=== PATIENT | male | born 1965 | race Caucasian/White ===

== ENCOUNTER 2017-08-07 19:11 | Inpatient (IN) ==
[2017-08-07] MEDS ORDERED: *HR* Morphine 2 MG/ML SYRINGE IVP PRN (21:46)
[2017-08-07] MEDS ORDERED: *HR* OxyCODONE Immed Rel 5 MG TABLET PO PRN (21:46)
[2017-08-07] MEDS ORDERED: Acetaminophen 325 MG TABLET PO PRN (21:46)
[2017-08-07] MEDS ORDERED: Ondansetron 4 MG/2 ML VIAL IVP PRN (21:46)
[2017-08-07] MEDS ORDERED: Naloxone 0.4 MG/ML INJ IVP PRN (21:46)
[2017-08-07] MEDS ORDERED: *HR* Heparin 5,000 UNIT/ML VIAL IVP PRN ×2 (21:48)
[2017-08-07] MEDS ORDERED: Nitroglycerin 0.4 MG TAB.SUBL SL PRN (21:50)
[2017-08-07] MEDS ORDERED: Heparin 25,000 UNIT/500 ML D5W 25,000 UNIT/500 ML MLS IVC SCH (22:00)
[2017-08-07 22:15] LABS: Basophils % 0.4 %; Eosinophils # 0.4 K/mcL (0.0-0.6); Eosinophils % 3.5 %; Hematocrit 40.2 % (37.5-50.1); Hemoglobin 13.5 g/dL (12.9-16.9); Immature Granulocytes % 0.4 % (0-4); Lymphocytes # 2.7 K/mcL (0.6-4.6); Mean Corpuscular HGB Conc 33.6 g/dL (31.6-35.5); Mean Corpuscular Hemoglobin 32.4 pg (28.0-33.3); Mean Corpuscular Volume 96.4 fL (83.0-100.0); Monocytes # 0.8 K/mcL (0.0-1.3); Monocytes % 7.3 %; Neutrophils # 7.3 K/mcL (1.6-8.9); Platelet Count 233 K/mcL (140-400); Red Blood Count 4.17 M/mcL (4.19-5.50); Red Cell Distribution Width 12.7 % (11.5-14.5); Segmented Neutrophils % 64.4 %
[2017-08-07 22:23] LABS: Hemoglobin A1C 5.3 %
[2017-08-07 22:25] LABS: INR 1.2
[2017-08-07 22:28] LABS: Activated Partial Thrombo Time 30.9 Seconds (26.0-36.0); BUN/Creatinine Ratio 12 (6-26); Blood Urea Nitrogen 11 mg/dL (8-26); Calcium 9.2 mg/dL (8.6-10.8); Carbon Dioxide 22 mEq/L (19-29); Chloride 107 mEq/L (98-109); Glucose 95 mg/dL (70-99); Osmolality,Calculated 291 (280-300); Potassium 3.8 mEq/L (3.5-4.5); Sodium 141 mEq/L (136-145); eGFR For African Americans > 60 (> 60); eGFR For Non-African Americans > 60 (> 60)
[2017-08-07 22:30] LABS: Chol/HDL Ratio 3.1 (0-4.9)
--- NOTE | 2017-08-07 23:12 | Internal Med History&Physical ---
Date of Encounter: 08/08/17 Time of Encounter: 23:11 Assessment and Plan (1) NSTEMI (non-ST elevated myocardial infarction) Current visit: Yes Status: Acute EKG shows no ST segment or T-wave changes. Troponin 0.012, 1.51, and greater than 5. Continue to trend troponin Continue heparin drip Continue aspirin, and high intensity statins 80 mg Lipitor at bedtime. Continue home dose of lisinopril and metoprolol. Patient is chest pain-free at the moment, nitroglycerin sublingual when necessary. Obtain echocardiogram Consult cardiology-Dr. Lucio was informed that he transferring physician per chart. (2) CAD (coronary artery disease) Current visit: Yes Status: Chronic As in an NSTEMI. Qualifiers: Coronary Disease-Associated Artery/Lesion type: [place] artery [place] vs. transplanted heart: [place] heart Associated angina: with unstable angina Qualified Code(s): I25.110 - Atherosclerotic heart disease of [place] coronary artery with unstable angina pectoris (3) Tobacco abuse Current visit: Yes Status: Chronic Cessation encouraged. Internal Medicine - H&P: HPI Chief complaint: Chest pain Admitted From: Home Plans for Post Hospital Care: Home History of present illness: Mr. Nails is a 51 year old male with past medical history of hypertension, hyperlipidemia, coronary artery disease with placement of 3 stents in 2015, tobacco abuse smokes one pack of cigarettes daily. Patient presented to outside facility with chest pain and pressure around 6 AM in the morning CPAP on the left side pressure-like with associated diaphoresis and shortness of breath, no nausea or vomiting. Relieved by nitroglycerin at home. At time of review she describes his chest pain-free but continues to have 1/10 chest pressure. His vital signs was normal in the ER at the referral center and his first cardiac enzyme was 0.012. However, his repeat troponin was 1.51 around 3 PM. Hence was transferred to a [facility] for cardiology intervention. Patient is calm and asymptomatic at time of review. 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 He continues to be on heparin drip and reports compliance with his home medications. Apart from cardiac, review of systems is unremarkable. Past Med Surg Social Fam HX - Past Medical History Medical history: COPD, coronary artery disease, hyperlipidemia, hypertension, myocardial infarction Psychiatric history: no psych history - Social History Smoking Status: Current every day smoker Packs per day: 1 Smokeless Tobacco Status: No Alcohol use: recent Drug use: marijuana - Family History Father History Unknown: Yes Internal Medicine - H&P: Meds Aspirin Enteric Coated [Aspirin EC] 81 mg PO DAILY 07/19/15 [History] Atorvastatin [Lipitor] 40 mg PO HS 07/19/15 [History] Lisinopril [Zestril] 10 mg PO DAILY 08/07/17 [History] Metoprolol XL (24 HR) Succ [Toprol Xl] 50 mg PO DAILY 08/07/17 [History] Nitroglycerin [Nitrostat] 0.4 mg SL Q5M PRN 08/07/17 [History] 3 Allergy/AdvReac Type Severity Reaction Status Date / Time No Known Allergies Allergy Verified 07/19/15 10:17 All Systems PM: A 10-system review of systems was performed and is negative for pertinent findings except as documented above in the HPI. - Constitutional Constitutional: no chills, no fever(s), no night sweats - EENT Eyes: no change in vision, no discharge, no pain, no photophobia Ears: no ear discharge, no ear pain, no tinnitus Nose, mouth and throat: no dysphagia, no nasal discharge, no neck pain, no sore throat - Cardiovascular Cardiovascular ROS IM: as per HPI - Respiratory Respiratory: no cough, no dyspnea, no wheezing, no excessive phlegm production - Gastrointestinal Gastrointestinal: no abdominal pain, no diarrhea, no hematemesis, no hematochezia, no melena, no nausea, no vomiting - Musculoskeletal Musculoskeletal ROS IM: no numbness, no tingling - Integumentary Integumentary IM: no rash, no unusual bruising - Neurological Neurological ROS: no confusion, no convulsions, no focal weakness, no numbness, no tingling, no tremor(s) - Endocrine Endocrine IM: no cold intolerance - Hematologic/Lymphatic Hematologic/Lymphatic: no easy bruising - Constitutional Vitals: Temp Pulse Resp BP Pulse Ox 98.4 F 58 18 125/89 95 08/07/17 21:00 08/07/17 23:00 08/07/17 23:00 08/07/17 23:00 08/07/17 23:00 General appearance: Present: A&O X 3, pleasant, no acute distress, answers questions appropriately - Head Head exam: Present: atraumatic, normocephalic - Eye Eye exam: Present: PERRL, conjuntiva pink, sclera anicteric Pupils: Present: PERRL - Neck Neck exam general surgery: Present: supple, trachea midline. Absent: lymphadenopathy - Respiratory Respiratory exam: Present: CTAB. Absent: accessory muscle use, rales, rhonchi, wheezes - Cardiovascular Cardiovascular exam: Present: RRR, +S1, +S2. Absent: diastolic murmur, gallop, rubs, systolic murmur - GI/Abdominal GI/Abdominal exam: Present: normal bowel sounds, soft, no peritoneal signs. Absent: distended, tenderness - Extremities Exam Extremities exam: Present: warm, radial pulses palpable and symmetrical. Absent : calf tenderness, cyanotic, pedal edema - Neurological Exam Neurological exam: Present: alert, CN II-XII intact, oriented X3, no focal deficits. Absent: pronater drift, facial droop, speech deficit - Skin Skin exam: Present: dry, intact Internal Med - H&P Results - Labs CBC & Chem 7: 08/07/17 22:03 08/07/17 22:03 Labs: Short CBC 08/07/17 Range/Units 22:03 WBC 11.3 H (4.3-11.1) K/mcL Hgb 13.5 (12.9-16.9) g/dL Hct 40.2 (37.5-50.1) % Plt Count 233 (140-400) K/mcL Neutrophils # 7.3 (1.6-8.9) K/mcL BMP 08/07/17 22:03 Sodium 141 Potassium 3.8 Chloride 107 Carbon Dioxide 22 BUN 11 Creatinine 0.90 Glucose 95 Calcium 9.2 Cardiac Enzymes 08/07/17 Range/Units 22:03 Troponin I 5.14 H* (0-0.03) ng/mL
[2017-08-08 05:02] LABS: Carbon Dioxide 23 mEq/L (19-29); Potassium 3.9 mEq/L (3.5-4.5); eGFR For African Americans > 60 (> 60); eGFR For Non-African Americans > 60 (> 60)
[2017-08-08 05:24] LABS: BUN/Creatinine Ratio 12 (6-26); Blood Urea Nitrogen 10 mg/dL (8-26); Calcium 8.9 mg/dL (8.6-10.8); Chloride 106 mEq/L (98-109); Glucose 100 mg/dL (70-99); Osmolality,Calculated 287 (280-300); Sodium 139 mEq/L (136-145)
[2017-08-08] MEDS: Aspirin Enteric Coated 81 MG Tablet PO SCH (08:32)
--- NOTE | 2017-08-08 08:37 | Cardiology Consult Note ---
<Jennifer Gustafson Bhavna - Last Filed: 08/08/17 09:08> Date of Encounter: 08/08/17 Time of Encounter: 08:10 Assessment and Plan (1) NSTEMI (non-ST elevated myocardial infarction) Current Visit: Yes Status: Acute Typical chest pain symptoms, peak troponin 5.14. No acute ischemic ECG changes. Pain free upon exam. Plavix load (600 mg) at [facility], on heparin gtt, asa, statin, and betablocker. Recommend [facility] with possible PCI; alternatives, risks, and benefits discussed; he is agreeable to proceed. Echocardiogram pending. Cardiac rehab consulted. Further recommendations to follow. (2) CAD (coronary artery disease) Current Visit: Yes Status: Chronic Hx of PCI to LAD and LCx (NSTEMI) in 2014. Plan as above. Qualifiers: Coronary Disease-Associated Artery/Lesion type: [place] artery [place] vs. transplanted heart: redding heart Associated angina: with unstable angina Qualified Code(s): I25.110 - Atherosclerotic heart disease of [place] coronary artery with unstable angina pectoris (3) Tobacco abuse Current Visit: Yes Status: Chronic Smoking cessation counseling provided. Discussion w patient/family: The assessment and plan as outlined above was discussed with the patient and/or family members who expressed understanding and agreement. All questions were answered. Thank you for involving us in the care of your patient. Please call with any questions. The patient will be discussed and reviewed with Dr. Khan; changes to be made accordingly. History of Present Illness Consult date: 08/08/17 Requesting physician: Kvng Garay Consult reason: NSTEMI Chief complaint: Chest pain History of present illness: Mr. Nails is a 51 year old male with PMHx significant for CAD s/p PCI ( NSTEMI 2014), HTN, HLD, and tobacco use who presented to the ED with sudden onset of left-sided chest discomfort with radiation across chest. Pain was described as heaviness and pressure associated with shortness of breath and diaphoresis. He went to [facility] ED and initial troponin was negative; repeat was 1.21. He was then given 600 mg Plavix, started on Heparin gtt and transferred to [facility]. He is pain free upon exam. No ischemic changes were noted on ECG. Of note, patient reports Plavix was stopped in September 2016 due to epistaxis. Denies abnormal bleeding or epistaxis since admission. Prior CV testing: LHC 04/15/15: severe 2v CAD, EF 65%; successful PTCA/KELLY to LAD and LCx; otherwise mild-moderate non-obstructive CAD TTE 04/16/15: LVEF 60%, no significant valvular dysfunction, normal wall motion Past Med Surg Social Fam HX - Past Medical History Attestation: Yes The following information was validated with the patient. Source: patient Medical history: COPD, coronary artery disease, hyperlipidemia, hypertension, myocardial infarction Psychiatric history: no psych history - Past Surgical History Surgical History: angioplasty/stent - Social History Smoking Status: Current every day smoker Packs per day: 1 Smokeless Tobacco Status: No Alcohol use: recent Drug use: marijuana - Family History Father History Unknown: Yes Medications and Allergies Aspirin Enteric Coated [Aspirin EC] 81 mg PO DAILY 07/19/15 [History] Atorvastatin [Lipitor] 40 mg PO HS 07/19/15 [History] Lisinopril [Zestril] 10 mg PO DAILY 08/07/17 [History] Metoprolol XL (24 HR) Succ [Toprol Xl] 50 mg PO DAILY 08/07/17 [History] Nitroglycerin [Nitrostat] 0.4 mg SL Q5M PRN 08/07/17 [History] 3 Allergy/AdvReac Type Severity Reaction Status Date / Time No Known Allergies Allergy Verified 07/19/15 10:17 All Systems Review: A 10-system review of systems was performed and is negative for pertinent findings except as documented above in the HPI. - Cardiovascular Cardiovascular: as per HPI Physical Examination Vital Signs, Last 4 Hours Temp Pulse Resp BP Pulse Ox 08/08/17 07:43 75 08/08/17 07:00 75 16 120/88 97 08/08/17 06:00 97.4 F L 58 14 126/92 96 08/08/17 05:00 76 12 132/88 94 General: Conversant, No Apparent Distress HEENT: Atraumatic, Normocephaly, Mucus Membranes Moist Neck: No JVD, Normal carotid pulses Cardiac: Reg Rate and Rhythm, Normal S1 and S2, No Murmur Lungs: Normal Breath Sounds, No Wheeze, Rales, Rhonchi Neuro: Alert and responsive, No focal deficits noted Abdomen: Soft, Non-Tender Skin: No rashes noted on visualized skin Musculoskeletal: No Chest Wall Tenderness Extremities: No Clubbing, No Cyanosis, No Edema, Normal Pulses Results 08/07/17 22:03 08/08/17 04:14 Lab Results 08/07/17 08/07/17 08/07/17 22:03 22:03 22:03 WBC 11.3 H Hgb 13.5 Hct 40.2 Plt Count 233 INR APTT Sodium 141 Potassium 3.8 Chloride 107 Carbon Dioxide 22 BUN 11 Creatinine 0.90 Glucose 95 Calcium 9.2 Troponin I B-Natriuretic Peptide 56 08/07/17 08/07/17 08/08/17 22:03 22:03 01:41 WBC Hgb Hct Plt Count INR 1.2 APTT 30.9 Sodium Potassium Chloride Carbon Dioxide BUN Creatinine Glucose Calcium Troponin I 5.14 H* 4.40 H* B-Natriuretic Peptide 08/08/17 08/08/17 04:14 04:14 WBC Hgb Hct Plt Count INR APTT 43.5 H Sodium 139 Potassium 3.9 Chloride 106 Carbon Dioxide 23 BUN 10 Creatinine 0.82 Glucose 100 H Calcium 8.9 Troponin I B-Natriuretic Peptide Active Medications Acetaminophen (Tylenol) 650 mg PO Q6HR PRN PRN Reason: Mild Pain (1-3) Stop: 02/06/18 21:47 Aspirin (Aspirin Ec) 81 mg PO DAILY NUBIA Stop: 02/07/18 09:01 Last Admin: 08/08/17 08:32 Dose: 81 mg Atorvastatin Calcium (Lipitor) 80 mg PO HS NUBIA Stop: 02/06/18 22:01 Last Admin: 08/07/17 22:10 Dose: Not Given Heparin Sodium (Porcine) (Heparin) 4,000 unit IVP Q6HR PRN PRN Reason: SEE COMMENTS Stop: 02/06/18 21:49 Heparin Sodium (Porcine) (Heparin) 2,000 unit IVP Q6H PRN PRN Reason: SEE COMMENTS Stop: 02/06/18 21:49 Last Admin: 08/08/17 05:57 Dose: 2,000 unit Heparin Sodium/Dextrose (Heparin 25,000 Unit/500 Ml D5w) 25,000 unit in 500 mls @ 20.007 mls/hr IVC .Q24H NUBIA; 11.7 UNIT/KG/HR PRN Reason: Protocol Stop: 02/06/18 22:01 Last Titration: 08/08/17 05:51 Dose: 13.7 unit/kg/hr, 23.427 mls/hr Lisinopril (Zestril) 5 mg PO DAILY NUBIA PRN Reason: Protocol Stop: 02/07/18 09:01 Last Admin: 08/08/17 08:32 Dose: 5 mg Metoprolol Tartrate (Lopressor) 12.5 mg PO BID NUBIA Stop: 02/07/18 09:01 Last Admin: 08/08/17 08:32 Dose: 12.5 mg Morphine Sulfate (Morphine Sulfate) 2 mg IVP Q4HR PRN PRN Reason: Severe Pain (7-10) Stop: 02/06/18 21:47 Naloxone HCl (Narcan) 0.4 mg IVP Q2MIN PRN PRN Reason: Opioid Reversal Stop: 02/06/18 21:47 Nitroglycerin (Nitroglycerin) 0.4 mg SL Q5MIN PRN PRN Reason: Chest Pain Stop: 02/06/18 21:51 Ondansetron HCl (Zofran) 4 mg IVP Q8HR PRN PRN Reason: Nausea And Vomiting Stop: 02/06/18 21:47 Oxycodone HCl (Roxicodone) 5 mg PO Q6HR PRN PRN Reason: Moderate Pain (4-6) Stop: 02/06/18 21:47 - Imaging and Cardiology Echo: pending, report reviewed Cardiac cath: report reviewed Other Results: 12 hour tele: avg HR=68 SR. No significant event noted. - EKG Interpretation EKG results cardiology: personally reviewed Consult Discharge Plan - Plan Referrals: Taiwo Khan DO [Primary Care Provider] - <Gypsy Khan - Last Filed: 08/08/17 11:43> Date of Encounter: 08/08/17 Assessment and Plan Discussion w patient/family: The assessment and plan as outlined above was discussed with the patient and/or family members who expressed understanding and agreement. All questions were answered. Thank you for involving us in the care of your patient. Please call with any questions. History of Present Illness History of present illness: Mr. Nails is a 51 year old male All Systems Review: A 10-system review of systems was performed and is negative for pertinent findings except as documented above in the HPI. Physical Examination Vital Signs, Last 4 Hours Temp Pulse Resp BP Pulse Ox 08/08/17 11:00 97.4 F L 61 16 116/87 97 08/08/17 07:43 75 Results 08/07/17 22:03 08/08/17 04:14 Lab Results 08/07/17 08/07/17 08/07/17 22:03 22:03 22:03 WBC 11.3 H Hgb 13.5 Hct 40.2 Plt Count 233 INR APTT Sodium 141 Potassium 3.8 Chloride 107 Carbon Dioxide 22 BUN 11 Creatinine 0.90 Glucose 95 Calcium 9.2 Troponin I B-Natriuretic Peptide 56 08/07/17 08/07/17 08/08/17 22:03 22:03 01:41 WBC Hgb Hct Plt Count INR 1.2 APTT 30.9 Sodium Potassium Chloride Carbon Dioxide BUN Creatinine Glucose Calcium Troponin I 5.14 H* 4.40 H* B-Natriuretic Peptide 08/08/17 08/08/17 04:14 04:14 WBC Hgb Hct Plt Count INR APTT 43.5 H Sodium 139 Potassium 3.9 Chloride 106 Carbon Dioxide 23 BUN 10 Creatinine 0.82 Glucose 100 H Calcium 8.9 Troponin I B-Natriuretic Peptide - Attending Attestation I examined this patient and my medical decision-making was reviewed with the Resident Physician. I agree with the documented findings, disposition and treatment plan. Mr. Nails is a 51 year old male with known CAD and history of PCI who presents with symptoms and data consistent with NSTEMI. He had an episode of chest pain yesterday while at work. He went to [facility] ED where initial troponin was negative but with repeat 1.2. He was subsequently given plavix load, heparin gtt and transferred to [facility]. He's remained chest pain free since his initial event. We discussed proceeding with [facility]. The R/B/A of the procedure were discussed with the patient who expressed understanding and verbalized agreement to proceed. It should be noted that plavix was stopped in September 2016 due to epistaxis. So far, he's tolerated plavix load and heparin. Interventional Cardiology is aware.
[2017-08-08] MEDS ORDERED: Heparin 1,000 UNITS/500 mL NS 500 ML ONE (08:39)
[2017-08-08] MEDS ORDERED: 0.9 % Sodium Chloride 1,000 ML ONE ×2 (08:39→13:30)
[2017-08-08] MEDS ORDERED: *HR* Heparin 10,000 UNIT/10 ML VIAL ONE (08:39)
[2017-08-08] MEDS ORDERED: Nitroglycerin 1,000 MCG/10 ML VIAL IV ONE (08:39)
[2017-08-08] MEDS ORDERED: Verapamil 5 MG/2 ML VIAL ONE (08:39)
--- NOTE | 2017-08-08 08:59 | Internal Med Progress Note ---
Date of Encounter: 08/08/17 Time of Encounter: 08:45 - Assessment and plan (1) NSTEMI (non-ST elevated myocardial infarction) Status: Acute Assessment and plan: Patient presented with chest pain, noted to have elevated troponin with EKG changes. Has been started on anticoagulation with IV heparin drip and loaded with Plavix. Continue aspirin, a 2 vj and statin. Follow-up echocardiogram. Cardiology on board, plan for left heart catheterization today. (2) CAD (coronary artery disease) Status: Chronic Assessment and plan: Continue aspirin, beta vj, statin, ERNESTO inhibitor. Telemetry monitoring. Qualifiers: Coronary Disease-Associated Artery/Lesion type: [place] artery [place] vs. transplanted heart: [place] heart Associated angina: with unstable angina Qualified Code(s): I25.110 - Atherosclerotic heart disease of [place] coronary artery with unstable angina pectoris (3) Tobacco abuse Status: Chronic Assessment and plan: Smoking cessation advice, patient is currently not interested in quitting. Declines nicotine transdermal patch. (4) Essential hypertension Status: Chronic (5) Hyperlipidemia Status: Chronic Qualifiers: Hyperlipidemia type: unspecified Qualified Code(s): E78.5 - Hyperlipidemia , unspecified - Subjective Interval history: Improved chest pain; no pressure-like sensation, no dyspnea, palpitations, dizziness, feels very well today; awaiting left heart catheterization today; - Constitutional Vitals: Temp Pulse Resp BP Pulse Ox 97.4 F L 75 16 120/88 97 08/08/17 06:00 08/08/17 07:43 08/08/17 07:00 08/08/17 07:00 08/08/17 07:00 General appearance: Present: A&O X 3, answers questions appropriately - Respiratory Respiratory exam: Present: CTAB. Absent: accessory muscle use, rales, rhonchi, wheezes - Cardiovascular Cardiovascular exam: Present: RRR, +S1, +S2. Absent: diastolic murmur, gallop, rubs, systolic murmur - GI/Abdominal GI/Abdominal exam: Present: normal bowel sounds, soft, no peritoneal signs. Absent: distended, tenderness - Extremities Exam Extremities exam: Present: full ROM, warm, radial pulses palpable and symmetrical. Absent: calf tenderness, cyanotic, pedal edema - Neurological Exam Neurological exam: Present: CN II-XII intact, oriented X3, no focal deficits. Absent: pronater drift, facial droop, speech deficit Internal Medicine: Result - Labs CBC & Chem 7: 08/09/17 09:19 08/09/17 09:19 Labs: Short CBC 08/07/17 Range/Units 22:03 WBC 11.3 H (4.3-11.1) K/mcL Hgb 13.5 (12.9-16.9) g/dL Hct 40.2 (37.5-50.1) % Plt Count 233 (140-400) K/mcL Neutrophils # 7.3 (1.6-8.9) K/mcL BMP 08/07/17 08/08/17 22:03 04:14 Sodium 141 139 Potassium 3.8 3.9 Chloride 107 106 Carbon Dioxide 22 23 BUN 11 10 Creatinine 0.90 0.82 Glucose 95 100 H Calcium 9.2 8.9 Cardiac Enzymes 08/07/17 08/08/17 Range/Units 22:03 01:41 Troponin I 5.14 H* 4.40 H* (0-0.03) ng/mL - ABG Interpretation ABG results: PT/INR, D-dimer PT 13.0 Seconds (9.4-12.1) H 08/07/17 22:03 Consult Discharge Plan - Plan Instructions: Myocardial Infarction (DC) Additional Instructions: F/up with Cardiology in 1-2 weeks Referrals: Taiwo Khan DO [Primary Care Provider] - 08/15/17 11:30 am () Prescriptions: Atorvastatin [Lipitor] 80 mg PO HS #60 tablet Clopidogrel [Plavix] 75 mg PO DAILY #30 tablet
[2017-08-08] MEDS ORDERED: *HR* Midazolam HCl 2 MG/2 ML VIAL ONE (13:36)
[2017-08-08] MEDS ORDERED: *HR* FentaNYL (PF) 100 MCG/2 ML VIAL ONE (13:37)
[2017-08-08] MEDS ORDERED: *HR* Adenosine 6 MG/2 ML VIAL IVP ONE (14:34)
--- NOTE | 2017-08-08 15:01 | Pre-Sedation Evaluation ---
Pre-sedation evaluation - Pre-sedation checklist Date of procedure: 08/08/17 Procedure: [facility] Recent Vitals: Last Vital Signs Temp 98.6 F 08/08/17 11:50 Pulse 61 08/08/17 11:00 Resp 16 08/08/17 11:00 BP 116/87 08/08/17 11:00 Pulse Ox 97 08/08/17 11:00 H&P (including ROS) documented in medical record: Yes Previous reaction to sedatives/anesthetics: No Dietary Status: NPO after Midnight Dentition: No loose teeth or bridges ASA Classification *see protocol: CLASS II-Mild systemic disease Plan of Care: Pt appropriate candidate for procedure/moderate/conscious sedation , Risks/benefits of procedure/sedation discussed w/ patient/family
--- NOTE | 2017-08-09 08:06 | Invasive Diagnostic Lab Proc ---
Name: Derrick Nails Date of Study: 08/08/2017 Date: 1965 Ht: 72.0in Medical Record#: [id number] Age: 51 Wt: 189.60lb Gender: Male BSA: 2.08 Order #: [id number] BMI: 25.68 Physicians Procedure Physician: Bill Esteban MD, FACC Referring MD: Referring MD: Staff Name Position Time In JunitoRadha RN Monitor 01:58 PM Malia Teran RT (R) Scrub 01:58 PM Aletha Nieto RN Fire Alarm Operator 01:59 PM Indications Indication Non-Stemi Procedures Performed Procedure L HRT ARTERY/VENTRICLE ANGIO IV Doppler BLD Flow 1st Vessel PRQ CARD KELLY STENT W/ANGIO 1 VSL Pre-Procedure Checklist Informed consent is complete signed and on chart. H&P is on chart. ID band is on and ID verified with patient. Patient NPO for procedure The procedure was described for the patient and questions were answered. Blood Pressure: 120/88 ECG is on chart. Plan of Care Patient will tolerate the procedure without complications. Adequate level of comfort will be maintained. Hemodynamics will remain stable Patient will recover from procedure without complications. Respiratory function will be maintained. Cardiac rhythm will remain stable. Patient temperature will be maintained. Patient and/or family have verbalized understanding of the procedure. Patient Education Chief Complaint/Reason for Test: Cardiac Cath Developmental Category: Adult (18-64 years) Developmentally Appropriate for Age: Yes Learning Barriers: None Education Needs: Procedure Education Method: Verbal Information Taught: Cardiac Cath Educational Evaluation: Able to repeat information Intravenous Access Time IV Size Location DC'd Fluid/Drip Rate Units RN 09:29 AM 20g 1 /" Patent On Arrival Allergies No Known Allergies Vital Signs Time BP (mmHg) HR (bpm) O2 Sat. RR (bpm) LOC 09:29 AM 120 / 88 75 97 % 16 5 = Fully awake and oriented or at pre-proc level 02:02 PM / % 5 = Fully awake and oriented or at pre-proc level 02:02 PM / % 5 = Fully awake and oriented or at pre-proc level 02:17 PM / % 4 = Oriented but drowsy 02:32 PM / % 5 = Fully awake and oriented or at pre-proc level 02:08 PM 134 / 74 62 96 % 13 02:13 PM 130 / 67 58 96 % 13 02:18 PM 138 / 71 70 94 % 17 02:23 PM 143 / 67 63 93 % 15 02:28 PM 152 / 72 60 96 % 12 02:33 PM 147 / 82 61 97 % 14 02:38 PM 141 / 82 57 96 % 14 02:43 PM 140 / 70 61 95 % 15 02:48 PM 148 / 83 54 96 % 13 02:54 PM 166 / 89 49 98 % 15 02:58 PM 139 / 85 63 95 % 20 Procedural Medications Time Medication Dose Units Method Given By 02:00 PM Oxygen 2 L/min nasal cannula Aletha Nieto RN 02:00 PM Versed 2 mg Intravenous Aletha Nieto RN 02:00 PM Fentanyl 50 mcg Intravenous Aletha Nieto RN 02:15 PM Lidocaine 2% 1 ml Subcutaneous Bill Esteban MD, FAC 02:19 PM Heparin 3000 units Nitroglycerin 200 mcg Verapamil 2.5 mg Intraarterial Bill Esteban MD, FAC 02:39 PM Nitroglycerin 200 mcg Intracoronary Bill Esteban MD 02:44 PM Adenosine 400 mcg Intracoronary Bill Esteban MD, FAC 02:48 PM Heparin 2000 units Intravenous Aletha Nieto RN 02:56 PM Nitroglycerin 100 mcg Intracoronary Bill Esteban MD ASA Classification: CLASS II- Mild systemic disease (i.e. well-controlled diabetes, hypertension, asthma, cigarette smoking) Melina Score Preprocedure Postprocedure Activity 2- Moves 4 extremities sustained head lift Activity 2- Moves 4 extremities sustained head lift Circulation 2- SBP +/= 20 points of pre-anesthetic level Circulation 2- SBP +/= 20 points of pre-anesthetic level Consciousness 2- Awake and alert oriented x 3 Consciousness 2- Awake and alert oriented x 3 O2 Saturation 2- Able to maintain O2 satruation of 92% on room air O2 Saturation 2- Able to maintain O2 satruation of 92% on room air Respiratory 2- Able to deep breathe and cough well Respiratory 2- Able to deep breathe and cough well Total Score 10 Total Score 10 Contrast Agent: Isovue Diagnostic Contrast: 171 ml Total Contrast: 171 ml Fluoro Dose: 423 mGy Activated Clotting Time Time Seconds to Clot 02:48 PM 235 Procedure Log Time Note Enter By 01:54 PM Case Start 01:54 PM CathStat 01:58 PM Pt arrived to skill labor 2 at 13:58 [email or web address] 01:58 PM Radha Wild RN Position: Monitor Time in: 13:58 [email or web address] 01:59 PM Malia Teran RT (R) Position: Scrub Time in: 13:58 [email or web address] 01:59 PM Aletha Nieto RN Position: Fire Alarm Operator Time in: 13:59 [email or web address] 01:59 PM Patient charges- Angio tray pack, Navilyst 3mm J, Pulse Oximetry and ACIST tubing and transducer [email or web address] 01:59 PM Case Delayed No [email or web address] 01:59 PM Hair removed from procedure site in procedure lab using clippers. Right wrist prepped with Chloraprep by Jaimie Nixon (R), safety strap applied then patient was draped. Skin intact. [email or web address] 01:59 PM Physician arrived 13:59 [email or web address] 01:59 PM ASA Class CLASS II- Mild systemic disease (i.e. well-controlled diabetes, hypertension, asthma, cigarette smoking) [email or web address] 01:59 PM Meet and greet completed [email or web address] 01:59 PM Sign in performed according to hospital policy. [email or web address] 01:59 PM Procedure start 13:59 [email or web address] 02:00 PM Time: 14:00 Oxygen on at 2 L/min per nasal cannula by Aletha Nieto RN [email or web address] 02:00 PM Time: 14:00 Versed 2 mg Intravenous Given by Aletha Nieto RN [email or web address] 02:00 PM Time: 14:00 Fentanyl 50 mcg Intravenous Given by Aletha Nieto RN [email or web address] 02:01 PM Hair removed from procedure site in procedure lab using clippers. Right groin prepped with Chloraprep by Jaimie Nixon (R), safety strap applied then patient was draped. Skin intact. [email or web address] 02:02 PM Time: 14:02 Patient comfortable and pain free: Yes [email or web address] 02:02 PM Time: 14:02LOC: 5 = Fully awake and oriented or at pre-proc level [email or web address] 02:02 PM Clinical Presentation: Non-STEMI [email or web address] 02:08 PM Vitals capture started with the following parameters, Patient=Adult, Interval=5 min, Initial Fsodohjb=762 mmHg, Deflation Rate=5 mmHg, Cuff placed on Left Arm 02:08 PM Pressure channel 3 zeroed. 02:08 PM HR=62 bpm, WNWR=684/74 mmhg, SpO2=96.0 %, Resp=13 B/min, Comment=SR 02:13 PM HR=58 bpm, RNJA=603/67 mmhg, SpO2=96.0 %, Resp=13 B/min, Comment=SR 02:15 PM Time out performed according to hospital policy [email or web address] 02:15 PM Time: 14:15 1 ml Lidocaine 2% to right groin Subcutaneous Given by Bill Esteban MD, [facility] [email or web address] 02:17 PM Time: 14:02LOC: 5 = Fully awake and oriented or at pre-proc level [email or web address] 02:17 PM Time: 14:02 Patient comfortable and pain free: Yes [email or web address] 02:18 PM Access obtained by percutaneous puncture. 6Fr 10cm Terumo Glidesheath sheath placed in right Radial artery. [id number] [email or web address] 02:18 PM 0.035 260cm Navilyst 3mmJ wire [id number] [email or web address] 02:18 PM HR=70 bpm, EHNE=102/71 mmhg, SpO2=94.0 %, Resp=17 B/min, Comment=SR 02:18 PM Time: 14:19 Patient given 3,000 units Heparin, 200 mcg Nitroglycerin, and 2.5 mg Verapamil Intraarterial by Bill Esteban MD, [facility] [email or web address] 02:18 PM 5Fr TIG catheter inserted over the wire [facility] [email or web address] 02:20 PM LCA angiography performed in multiple views. [email or web address] 02:20 PM Recorded Pressure: Ao, HR=73, Condition=Condition 1 (Aorta) Ao 86/70/78 02:21 PM RCA angiography performed in multiple views. [email or web address] 02:21 PM Recorded Pressure: Ao, HR=63, Condition=Condition 1 (Aorta) Ao 89/68/79 02:22 PM Catheter removed [email or web address] 02:23 PM Coronary Dominance: right [email or web address] 02:23 PM Lesion found in 1st Marginal. Pre Stenosis: 20 Pre NAJMA Flow: [email or web address] 02:23 PM Lesion found in Mid RCA. Pre Stenosis: 30 Pre NAJMA Flow: [email or web address] 02:23 PM HR=63 bpm, NGMX=821/67 mmhg, SpO2=93.0 %, Resp=15 B/min, Comment=SR 02:23 PM Circumflex, Obtuse Marginal, Left Posterior Descending, and Left Posterolateral Coronary Arteries with 20 % stenosis. If graft is supplying this area, 0 % stenosis [email or web address] 02:23 PM Right Coronary, Right Posterior Descending Arteries with Right Posterolateral and Acute Marginal branches with 30 % stenosis. If graft is supplying this area, 0 % stenosis [email or web address] 02:24 PM Catheter removed [email or web address] 02:24 PM 5Fr FL 3.5 catheter inserted over the wire [facility] [email or web address] 02:25 PM Lesion found in Mid LAD. Pre Stenosis: 50 Pre NAJMA Flow: [email or web address] 02:25 PM Mid/Distal Left Anterior Descending Coronary Artery and diagonal branches with 50% stenosis. If graft is supplying this area, 0 % stenosis [email or web address] 02:28 PM Catheter removed [email or web address] 02:28 PM 5Fr Pigtail catheter inserted over the wire [facility] [email or web address] 02:28 PM Catheter selectively placed in left ventricle [email or web address] 02:28 PM HR=60 bpm, JPMY=995/72 mmhg, SpO2=96 %, Resp=12 B/min 02:28 PM Bolus angiogram of left Ventricle complete: 12 ml/sec for a total of 20 mls [email or web address] 02:29 PM Pressure channel 3 zeroed. 02:30 PM Recorded Pressure: LV, HR=66, Condition=Condition 1 (Left Ventricle) LV 132/25/12 02:32 PM Time: 14:17 Patient comfortable and pain free: Yes [email or web address] 02:32 PM Time: 14:17LOC: 4 = Oriented but drowsy [email or web address] 02:33 PM Recorded Pressure: LV, Ao, HR=58, Condition=Condition 1 (Left Ventricle) LV 122/-9/16, (Aorta) Ao 119/78/96 02:33 PM HR=61 bpm, PJJJ=290/82 mmhg, SpO2=97.0 %, Resp=14 B/min, Comment=SR 02:34 PM Catheter removed [email or web address] 02:37 PM 6Fr EBU 3.25 Medtronic guide catheter was used to cannulate the PCI vessel successfully. reused? No [email or web address] 02:38 PM HR=57 bpm, SIHG=839/82 mmhg, SpO2=96.0 %, Resp=14 B/min, Comment=SR 02:39 PM Time: 14:39 Nitroglycerin 200 mcg Intracoronary Given by Bill Esteban MD [email or web address] 02:40 PM Comet pressure guidewire advanced to target lesion. [email or web address] 02:43 PM HR=61 bpm, QUZF=932/70 mmhg, SpO2=95.0 %, Resp=15 B/min, Comment=SR 02:44 PM Time: 14:44 Adenosine 400 mcg administered Intracoronary by Bill Esteban MD, [facility] [email or web address] 02:44 PM FFR Measurement: 0.77 [email or web address] 02:46 PM Inflation device was opened. [email or web address] 02:46 PM 2.25 mm x 20 mm Emerge Monorail balloon across target lesion- successful. reused? No [email or web address] 02:47 PM Time: 14:32LOC: 5 = Fully awake and oriented or at pre-proc level [email or web address] 02:47 PM Balloon inflated @ 14 marissa for 18 seconds [email or web address] 02:48 PM At 14:48 the ACT was 235 seconds. [email or web address] 02:48 PM Time: 14:48 Heparin 2000 units Intravenous Given by Aletha Nieto RN Petersen pump [email or web address] 02:48 PM HR=54 bpm, WOBC=274/83 mmhg, SpO2=96.0 %, Resp=13 B/min, Comment=SR 02:50 PM Balloon inflated @ 14 marissa for 18 seconds [email or web address] 02:51 PM Balloon catheter removed intact. [email or web address] 02:52 PM 3.0mm x 32mm Synergy drug-eluting stent across target lesion- successful Lot [id number] [email or web address] 02:54 PM Stent deployed @ 12 marissa for 31 seconds [email or web address] 02:54 PM HR=49 bpm, XFBE=058/89 mmhg, SpO2=98.0 %, Resp=15 B/min 02:55 PM Stent delivery system removed intact. [email or web address] 02:55 PM Guide wire removed intact. [email or web address] 02:56 PM Time: 14:56 Nitroglycerin 100 mcg Intracoronary Given by Bill Esteban MD [email or web address] 02:56 PM Guide catheter removed intact. [email or web address] 02:56 PM Procedure completed at 14:56 [email or web address] 02:56 PM Sign out completed: Radiation Dose 422.64 mGy Fluoro Time: 7.2 Isovue 370 - 200ml contrast 171 ml given by Bill Esteban MD, [facility]. Complications: NoneCardiac Rehab Consult needed: YesConfirmed administered medications: Yes [email or web address] 02:57 PM Arterial sheath pulled, Vasc Band closure device used and was Successful S/N. [email or web address] 02:57 PM 10 ml air in Vasc Band. [email or web address] 02:58 PM Post ECG NSR [email or web address] 02:58 PM Post Blood Pressure 166/89 [email or web address] 02:58 PM 14:58 Post Pulses Rt Radial 1+ [email or web address] 02:58 PM Information taught Cardiac Cath, PCI, and Vasc Band [email or web address] 02:58 PM Education needs Procedure, Plan of Care, and Responsibilities of Patient in Care [email or web address] 02:58 PM Learning barriers :None [email or web address] 02:58 PM Education Methods Verbal [email or web address] 02:58 PM Education evaluation Able to repeat information [email or web address] 02:58 PM HR=63 bpm, TLPW=057/85 mmhg, SpO2=95.0 %, Resp=20 B/min 02:59 PM Site status No bleeding/hematoma - Rt Wrist as reported by Malia Teran RT (R) at 14:58 [email or web address] 03:00 PM Report given to Javad ULRICH Pt taken to ICU Room #8. 14:59 [email or web address] 03:00 PM Plavix, Effient or Brilinta given Yes [email or web address] 03:00 PM Delay to floor No [email or web address] 03:00 PM Patient out of room: 15:00 [email or web address] 03:00 PM Family placed in consult room. [email or web address] Complications Complication None Hemodynamics Pressures Site Systolic/A Wave Diastolic/V Wave Mean AO 86 70 78 AO 89 68 79 LV 132 25 12 LV 122 -9 16 AO 119 78 96 Post Procedure Information Blood Pressure: 166/89 mmHg Rhythm: NSR Post procedural instructions were given Closure Device Time Device Success/Fail 08/08/2017 3:01:00 PM Mechanical Compression Successful Site Checks Time Location Status Staff Sheath In? Note 02:58 PM Rt Wrist No bleeding/hematoma Malia Teran RT (R) Pulses Time Site Pre-Procedure Post-Procedure Note 08/08/2017 9:29:00 AM Bilateral DP & PT 2+ 08/08/2017 9:29:00 AM Bilateral radial 2+ 2:58:00 PM Rt Radial 1+ Updated by Radha Wild RN on 08/08/2017 3:03:57 PM electronically signed on 08/08/2017 3:04:42 PM with status of Final
--- NOTE | 2017-08-09 08:09 | Electrocardiograph Report ---
[place] [address] Test Date: 2017-08-07 [facility] Room: [facility] Gender: M Assistant Secretary: RODRICK : 1965 Requested By: Rachael Cornejo Order Number: [id number] Reading MD: Bill Esteban MD Measurements Intervals [place] Rate: 65 P: 69 UT: 152 QRS: 60 QRSD: 98 T: 62 QT: 400 QTc: 411 Interpretive Statements SINUS RHYTHM BASELINE ARTIFACT Electronically Signed On 08-09-2017 6:30:54 EDT by Bill Esteban MD
[2017-08-09 09:33] LABS: Basophils % 0.5 %; Eosinophils # 0.3 K/mcL (0.0-0.6); Eosinophils % 3.1 %; Hematocrit 43.6 % (37.5-50.1); Hemoglobin 14.6 g/dL (12.9-16.9); Immature Granulocytes % 0.6 % (0-4); Lymphocytes # 1.9 K/mcL (0.6-4.6); Lymphocytes % 22.8 %; Mean Corpuscular HGB Conc 33.5 g/dL (31.6-35.5); Mean Corpuscular Hemoglobin 32.5 pg (28.0-33.3); Mean Corpuscular Volume 97.1 fL (83.0-100.0); Mean Platelet Volume 9.2 fL (9.4-12.4); Monocytes # 0.5 K/mcL (0.0-1.3); Monocytes % 6.5 %; Neutrophils # 5.6 K/mcL (1.6-8.9); Platelet Count 252 K/mcL (140-400); Red Blood Count 4.49 M/mcL (4.19-5.50); Red Cell Distribution Width 12.7 % (11.5-14.5); Segmented Neutrophils % 66.5 %
[2017-08-09 10:21] LABS: BUN/Creatinine Ratio 11 (6-26); Blood Urea Nitrogen 10 mg/dL (8-26); Calcium 9.5 mg/dL (8.6-10.8); Carbon Dioxide 24 mEq/L (19-29); Chloride 104 mEq/L (98-109); Glucose 141 mg/dL (70-99); Osmolality,Calculated 285 (280-300); Sodium 137 mEq/L (136-145); eGFR For African Americans > 60 (> 60); eGFR For Non-African Americans > 60 (> 60)
[2017-08-09 10:36] VITALS: BP 121/74
[2017-08-09] MEDS: Aspirin Enteric Coated 81 MG Tablet PO SCH (10:50)
--- NOTE | 2017-08-09 12:05 | Cardiology Progress Note ---
Date of Encounter: 08/09/17 Time of Encounter: 11:45 Assessment and Plan (1) NSTEMI (non-ST elevated myocardial infarction) Current Visit: Yes Status: Acute Peak troponin 5.14. S/p PCI to the mLAD with KELLY. Minimal disease otherwise. No complications from procedure. Right radial access site without hematoma, redness, or pain. Importance of DAPT with asa and plavix for minimum of one year uninterrupted reviewed with patient . He voiced understanding. Healthy heart diet and exercise reviewed. Cardiac rehab discussed. He will consider. He feels he may not be able to do due to his job. Continue statin and bb therapy. H/o severe nose bleeds on plavix. No problems noted at this time. 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 No heavy lifting over 10 lbs for one week. No driving for one week. He will need to stay off work for 1-2 weeks. F/u will be coordinated by [facility]. (2) CAD (coronary artery disease) Current Visit: Yes Status: Chronic Hx of PCI to LAD and LCx (NSTEMI) in 2014. S/p PCI to mLAD. Continue plavix, asa, statin, beta-vj. Qualifiers: Coronary Disease-Associated Artery/Lesion type: [place] artery [place] vs. transplanted heart: [place] heart Associated angina: with unstable angina Qualified Code(s): I25.110 - Atherosclerotic heart disease of [place] coronary artery with unstable angina pectoris (3) Tobacco abuse Current Visit: Yes Status: Chronic Smoking cessation counseling provided. Discussion w patient/family: The assessment and plan as outlined above was discussed with the patient and/or family members who expressed understanding and agreement. All questions were answered. Thank you for involving us in the care of your patient. Please call with any questions. Subjective Principal diagnosis: NSTEMI Interval history: Patient ambulating in his room. Denies chest pain. No problem with right radial access. Tolerating plavix currently. Denies nose bleed. Objective Vital Signs, Last 4 Hours Temp Pulse Resp BP Pulse Ox 08/09/17 10:35 98.3 F 68 18 121/74 94 General: Conversant, No Apparent Distress HEENT: Atraumatic, Normocephaly, Mucus Membranes Moist Neck: No JVD, Normal carotid pulses Cardiac: Reg Rate and Rhythm, Normal S1 and S2, No Murmur Lungs: Normal Breath Sounds, No Wheeze, Rales, Rhonchi Neuro: Alert and responsive, No focal deficits noted Abdomen: Soft, Non-Tender Skin: No rashes noted on visualized skin Musculoskeletal: No Chest Wall Tenderness Extremities: No Clubbing, No Cyanosis, No Edema, Normal Pulses, Other (Right radial access without hematoma. 2/4+ radial pulse. ) Results 08/09/17 09:19 08/09/17 09:19 Lab Results 08/08/17 08/08/17 08/09/17 11:51 11:51 09:19 WBC 8.4 Hgb 14.6 Hct 43.6 Plt Count 252 APTT 69.6 H D Sodium Potassium Chloride Carbon Dioxide BUN Creatinine Glucose Calcium Troponin I 2.69 H* 08/09/17 09:19 WBC Hgb Hct Plt Count APTT Sodium 137 Potassium 4.0 Chloride 104 Carbon Dioxide 24 BUN 10 Creatinine 0.87 Glucose 141 H Calcium 9.5 Troponin I - Imaging and Cardiology Cardiac cath: report reviewed - EKG Interpretation EKG results cardiology: personally reviewed (EKG repeated today. NSR with no acute ST changes.) Consult Discharge Plan - Plan Referrals: Taiwo Khan DO [Primary Care Provider] - 08/15/17 11:30 am ()
--- NOTE | 2017-08-09 13:47 | Discharge Summary ---
Date of Encounter: 08/09/17 Time of Encounter: 09:15 - Discharge Diagnosis (1) NSTEMI (non-ST elevated myocardial infarction) Priority: Primary Status: Acute (2) Essential hypertension Priority: Secondary Status: Chronic (3) Hyperlipidemia Priority: Secondary Status: Chronic Qualifiers: Hyperlipidemia type: unspecified Qualified Code(s): E78.5 - Hyperlipidemia , unspecified (4) CAD (coronary artery disease) Priority: Secondary Status: Chronic Qualifiers: Coronary Disease-Associated Artery/Lesion type: [place] artery [place] vs. transplanted heart: [place] heart Associated angina: with unstable angina Qualified Code(s): I25.110 - Atherosclerotic heart disease of [place] coronary artery with unstable angina pectoris (5) Tobacco abuse Priority: Secondary Status: Chronic - Discharge Medications Prescriptions: Atorvastatin [Lipitor] 80 mg PO HS #60 tablet Clopidogrel [Plavix] 75 mg PO DAILY #30 tablet Home Medications: Aspirin Enteric Coated [Aspirin EC] 81 mg PO DAILY 07/19/15 [History] Lisinopril [Zestril] 10 mg PO DAILY 08/07/17 [History] Metoprolol XL (24 HR) Succ [Toprol Xl] 50 mg PO DAILY 08/07/17 [History] Nitroglycerin [Nitrostat] 0.4 mg SL Q5M PRN 08/07/17 [History] Atorvastatin [Lipitor] 80 mg PO HS #60 tablet 08/09/17 [Rx] Clopidogrel [Plavix] 75 mg PO DAILY #30 tablet 08/09/17 [Rx] Allergies/Adverse Reactions: 3 Allergy/AdvReac Type Severity Reaction Status Date / Time No Known Allergies Allergy Verified 07/19/15 10:17 Procedures/tests Complete & Pending: Procedures Performed prior 72 hours Category Date Time Status CL Cardiac Catheterization [CL] Routine Agricultural Research Technician 08/08/17 08:53 Ordered ECG 12 lead ECG [ECG] Routine Y 08/07/17 21:34 Completed ECG 12 lead ECG [ECG] Routine Y 08/08/17 15:01 Completed ECG 12 lead ECG [ECG] Routine Y 08/09/17 05:43 Completed EKG [ECG 12 lead ECG] [ECG] Routine Y 08/09/17 08:57 Ordered EV echocardiogram Routine Y 08/08/17 06:10 Completed Date of admission: 08/07/17 20:58 Primary care physician: Taiwo Khan DO Consults: 08/07/17 21:51 Consult to Cardiology [CONS] Stat Comment: Consulting Provider: Chuy Landa Reason for Consult: NSTEMI Call Completed: Yes 08/08/17 08:00 Consult to Cardiac Rehabilitation-Phase1 [CONS] Routine Comment: Reason for Consult: NSTEMI Call Completed: No Discharging clinician: Rachael Cornejo Anticipated date of discharge: 08/09/17 - Patient Status Disposition: Home, Self-Care Condition: Good Functional capacity at discharge: independent ambulation Overall status at discharge: patient is progressing back to baseline - Discharge Instructions Instructions: Myocardial Infarction (DC) Follow Up With: Taiwo Khan DO [Primary Care Provider] - 08/15/17 11:30 am () Additional Instructions: F/up with Cardiology in 1-2 weeks - Diet and Activity Activity: increase activity as tolerated Diet: low fat, low cholesterol, low salt diet Hospital course: Mr. Nails is a 51 year old male admitted with chest pain and noted to have elevated troponin and EKG changes. He was started on non-ST elevation VA protocol with IV heparin drip, aspirin, Plavix, beta vj and statin. Cardiology was consulted and patient underwent left heart catheterization, noted to have single-vessel disease and underwent PTCA/drug-eluting stent to mid LAD. Echocardiogram showed preserved ejection fraction and mild left ventricular diastolic dysfunction. He is currently medically stable, medication compliance especially with dual antiplatelet therapy has been reinforced and patient verbalized understanding. Patient continues to smoke cigarettes, he has been counseled to quit smoking for 4 minutes, reports that multiple doctors have told him the same thing and he is currently not motivated to quit smoking. Time spent discussing smoking cessation with patient: 3 to 10 minutes - Time Spent with Patient Total time spent providing and/or coordinating discharge services: Greater than 30 minutes (40 min) - Constitutional Vitals: Temp Pulse Resp BP Pulse Ox 98.3 F 68 18 121/74 94 08/09/17 10:35 08/09/17 10:35 08/09/17 10:35 08/09/17 10:35 08/09/17 10:35 General appearance: Present: A&O X 3, answers questions appropriately - Respiratory Respiratory exam: Present: CTAB. Absent: accessory muscle use, rales, rhonchi, wheezes - Cardiovascular Cardiovascular exam: Present: RRR, +S1, +S2. Absent: diastolic murmur, gallop, rubs, systolic murmur
--- NOTE | 2017-08-13 08:34 | Electrocardiograph Report ---
[place] [address] Test Date: 2017-08-08 [facility] Department: [facility] Room: 2A Gender: M Neighborhood Worker: : 1965 Requested By: Bill Esteban Order Number: [id number] Reading MD: Maninder Marcial DO Measurements Intervals [place] Rate: 64 P: 65 ME: 145 QRS: 63 QRSD: 97 T: 68 QT: 403 QTc: 412 Interpretive Statements Sinus rhythm Possible right ventricular conduction delay Electronically Signed On 08-12-2017 9:13:34 EDT by Maninder Marcial DO
--- NOTE | 2017-08-13 08:34 | Electrocardiograph Report ---
[place] [address] Test Date: 2017-08-09 Pat Name: Derrick [facility] Department: 112 Room: [facility] [place] Gender: M Front Office Coordinator: ANSHU : 1965 Requested By: Rachael Cornejo Order Number: [id number] Reading MD: Maninder Marcial DO Measurements Intervals [place] Rate: 65 P: 70 ME: 138 QRS: 65 QRSD: 97 T: 65 QT: 395 QTc: 407 Interpretive Statements SINUS RHYTHM POSSIBLE RIGHT VENTRICULAR CONDUCTION DELAY Electronically Signed On 08-12-2017 9:31:17 EDT by Maninder Marcial DO
== END 2017-08-09 14:15 | disposition home or self-care (01) | DRG 247 ==
LOC: SUATTDRO 20:58 → ICNU 20:58 → 2ANU 08-09 01:58
PROVIDERS: ADMIT Family Medicine; ATTEND Internal Medicine

== ENCOUNTER 2020-05-25 06:27 | Observation (INO) ==
[2020-05-25] MEDS ORDERED: Naloxone 0.4 MG/ML INJ IVP PRN (07:49)
[2020-05-25] MEDS ORDERED: Ondansetron 4 MG/2 ML VIAL IVP PRN (07:49)
[2020-05-25] MEDS ORDERED: Perflutren Lipid Microsphere 1.3 ML in 0.9 % Sodium Chloride 8.7 ML IVP ONE (07:50)
[2020-05-25] MEDS ORDERED: Nitroglycerin 0.4 MG TAB.SUBL SL PRN (07:51)
[2020-05-25] MEDS ORDERED: Metoprolol XL (24 HR) Succ 25 MG TAB.ER.24H PO SCH (09:00)
[2020-05-25] MEDS: Aspirin 81 MG TAB.CHEW PO SCH (12:23)
[2020-05-25] MEDS: Metoprolol XL (24 HR) Succ 50 MG TAB.ER.24H PO SCH (12:24)
[2020-05-26 03:19] LABS: Basophils % 0.6 %; Eosinophils # 0.4 K/mcL (0.0-0.6); Eosinophils % 5.6 %; Hematocrit 43.5 % (37.5-50.1); Hemoglobin 14.7 g/dL (12.9-16.9); Immature Granulocytes % 0.3 % (0-4); Lymphocytes # 1.8 K/mcL (0.6-4.6); Lymphocytes % 27.2 %; Mean Corpuscular HGB Conc 33.8 g/dL (31.6-35.5); Mean Corpuscular Hemoglobin 33.7 pg (28.0-33.3); Mean Corpuscular Volume 99.8 fL (83.0-100.0); Mean Platelet Volume 9.6 fL (9.4-12.4); Monocytes # 0.6 K/mcL (0.0-1.3); Monocytes % 8.8 %; Neutrophils # 3.9 K/mcL (1.6-8.9); Platelet Count 214 K/mcL (140-400); Red Blood Count 4.36 M/mcL (4.19-5.50); Red Cell Distribution Width 12.6 % (11.5-14.5); Segmented Neutrophils % 57.5 %; White Blood Count 6.7 K/mcL (4.3-11.1)
[2020-05-26 03:41] LABS: Chol/HDL Ratio 2.9 (0-4.9)
[2020-05-26 03:42] LABS: BUN/Creatinine Ratio 13 (6-26); Blood Urea Nitrogen 11 mg/dL (6-20); Calcium 8.6 mg/dL (8.6-10.3); Carbon Dioxide 22 mEq/L (23-29); Chloride 106 mEq/L (98-107); Glucose 87 mg/dL (70-105); Osmolality,Calculated 281 (280-300); Potassium 4.7 mEq/L (3.5-5.1); Sodium 136 mEq/L (136-145); eGFR For African Americans > 60 (> 60); eGFR For Non-African Americans > 60 (> 60)
[2020-05-26] MEDS ORDERED: Regadenoson 0.4 MG/5 ML SYRINGE IVP ONE (06:04)
[2020-05-26] MEDS ORDERED: lisinopriL 10 MG TABLET PO SCH (09:00)
[2020-05-26 10:28] VITALS: BP 135/82
[2020-05-26] MEDS: Aspirin 81 MG TAB.CHEW PO SCH (10:36)
[2020-05-26] MEDS: Metoprolol XL (24 HR) Succ 50 MG TAB.ER.24H PO SCH (10:36)
[2020-05-26 11:07] LABS: Estimated Average Glucose 123 mg/dl
== END 2020-05-26 13:41 | disposition home or self-care (01) ==
LOC: 3BNU
PROVIDERS: ADMIT Student in an Organized Health Care Education/Training Program; ATTEND Student in an Organized Health Care Education/Training Program